=== PATIENT | male | born 1955 | race Caucasian/White ===

== ENCOUNTER 2018-01-17 09:14 | Day surgery (SDC) | payer SELFPAY ==
--- NOTE | 2018-01-17 06:51 | EKG ---
Test Date: 2018-01-16 Test Time: 14:20:44 C T Tech: ARON MEASUREMENT RESULTS: Intervals: Rate: 59 NM: 142 QRSD: 98 QT: 418 QTc: 413 [place]: P: 59 NM: 142 QRS: 47 T: 30 INTERPRETIVE STATEMENTS: Sinus bradycardia Otherwise normal ECG No previous ECG available for comparison Electronically Signed On 01-17-18 06:49:16 CDT by José Manuel Neely
[2018-01-17] MEDS ORDERED: PROPOFOL 200 MG/20 ML VIAL IV ONE (09:16)
[2018-01-17] MEDS ORDERED: MIDAZOLAM HCL 2 MG/2 ML INJ ONE (09:16)
[2018-01-17] MEDS ORDERED: LIDOCAINE 2% MPF 5 ML VIAL ONE ×2 (09:17→10:55)
[2018-01-17] MEDS ORDERED: FENTANYL CITR 100 MCG/2 ML ONE ×2 (09:17→10:16)
[2018-01-17] MEDS ORDERED: ROCURONIUM 50 MG/5 ML VIAL IV ONE (09:18)
[2018-01-17] MEDS ORDERED: LIDOCAINE JELLY 2%- 5 ML TUBE ONE (09:19)
[2018-01-17] MEDS ORDERED: SUCCINYLCHOLINE 20 MG/ML (10 ML) IV ONE (09:22)
[2018-01-17] MEDS ORDERED: Ringers Lactate 1,000 ML IV ONE (09:36)
[2018-01-17] MEDS ORDERED: EPINEPHRINE/PF 1 MG/ML AMP ONE (09:44)
[2018-01-17] MEDS ORDERED: DEXAMETHASONE 10 MG/ML VIAL ONE (10:11)
[2018-01-17] MEDS ORDERED: NA CHLORIDE 0.9% 250 ML ONE (10:18)
--- NOTE | 2018-01-17 10:49 | P.BOP ---
Preoperative diagnosis: glottic lesion, dysphonia Postoperative diagnosis: left TVF lesion, path pending Primary procedure: DL with removal of tumor Planishing Hammer Operator: NONE,NONE Estimated blood loss: 5ml Specimen: anterior laryngeal lesion Findings: firm, round, smooth mass Anesthesia: General Complications: None Implants: none Fluids & blood products: crystalloid 900ml Transferred to: Recovery Room Condition: Good
[2018-01-17] MEDS ORDERED: HYDROCODONE/APAP 10/325 TAB ONE (12:04)
--- NOTE | 2018-01-17 14:16 | OP ---
Date of Procedure: 01/17/2018 Surgeon: Krystin Desir MD Preoperative Diagnoses: Chronic hoarseness, laryngeal lesion. Postoperative Diagnoses: Glottic lesion, pathology pending. 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 He was treated with intramuscular Kenalog injection, steroid and Maalox p.o. with lat er treatment using ciprofloxacin, prednisone with no significant improvement. On ENT evaluation in t he clinic, he was noted to have a small to moderate size mass at the anterior commissure, and the ris ks, benefits, and alternatives to the procedure were discussed with the patient, who agreed to frandy couch Description Of Procedure: The patient was brought to the operating room. He was placed under genera l anesthesia via oral endotracheal tube. A shoulder roll was placed. The neck was extended. A toot h guard was placed on his upper teeth and the Laury-Berci laryngoscope was used to perform a direct laryngoscopy. The vallecula and epiglottis post arytenoid area of cricoid and piriform sinuses were unremarkable. The lesion was located near the anterior commissure. On initial appearance, it was pi nk, round, and smooth without obvious ulceration or friability. A right angle probe was used to gent ly feel around the node and retract the vocal cord. It did not appear to be attached in any way to t he right true vocal cord and the attachment on to the left was difficult to visualize as the cord did not retract as easily from the mass. A large cup forceps was used to take multiple biopsies from th e mass. It was fairly firm with firm rounded edges and at least a part of the patient's hoarseness s ymptoms are likely due to the mass effect of this lesion on the glottic closure, therefore, a desire to remove the bulk of the mass to optimize the patient's voice was desirous regardless of pathology. A laryngeal leaf sucker operator blade was fitted onto the microdebrider to help carefully debulk the lesion, it was discovered that the lesion was fairly firm, particularly on its outer mucosal surface and the lar yngeal leaf sucker operator was ineffective. More anteriorly and superiorly where the lesion had been biopsied, t he deeper tissue of the lesion was softer and the laryngeal leaf sucker operator blade on the microdebrider was us ed to debulk the tumor in this area. The Marcell grasper to the right was used to grasp and remove s everal additional portions of the tumor to aid in debulking. The small up-biting cup forceps were us ed, but were insufficient in size to effectively grasp portions of the tissue. Care was taken during biopsy to avoid inadvertent damage to the right vocal cord. As more of the mass was removed, it tomy eared that the attachment point of the mass was on the anterior left true vocal cord. The Marcell ag ain was used to grasp the tissue and finally the bulk of the tissue came off as a moderate-sized port ion approximately 5 mm in diameter. An epinephrine-soaked pledget was applied to the anterior larynx to aid in hemostasis. After removal, a photodocumentation was obtained of the attachment point. Th ere was a very small mucosal defect on the left true vocal fold, likely the site of attachment. The area was carefully suctioned and was noted to be hemostatic. The patient was then returned to care o f Anesthesia for awakening, extubation in the operating room, which proceeded without difficulty. Complications: None. Specimens: Anterior laryngeal mass to Pathology for permanent section. Clinically, I am most suspic ious of a granuloma given the overall appearance and firmness of the mass as well as the patient's re latively short-term hoarseness of 6 weeks. I discussed with the patient's the possibility of be nign and malignant diagnoses and will contact them as soon as further information is available. The patient is given written instructions regarding strict voice rest for 3 days. No whispering or singi ng for at least 2 weeks and use of a confidential voice for 1 week following his initial 3 days of vo ice rest. ABDULAZIZ/ARMANI Voice ID: [id number] Report ID: [id number]
== END 2018-01-17 13:20 | disposition home or self-care (01) ==
LOC: OR 09:14
PROVIDERS: ATTEND Otolaryngology
PROC: 0CBS8ZZ Excision of Larynx, Via Natural or Artificial Opening Endoscopic (ICD-10-PCS; principal; 2018-01-17 10:45)
DX: J38.3 Other diseases of vocal cords (principal); R49.0 Dysphonia; F17.200 Nicotine dependence, unspecified, uncomplicated
CPT/HCPCS: 88305; 93005; J0171; J0330; J1100; J2250; J3010